=== PATIENT | female | born 1990 | race Caucasian/White ===

== ENCOUNTER 2019-04-10 09:04 | Outpatient (CLI) | payer SELFPAY ==
[2019-04-10 10:11] VITALS: BMI 32.9
== END 2019-04-10 10:22 | disposition home or self-care (01) ==
PROVIDERS: PCP Internal Medicine Adolescent Medicine; Visit Provider Nurse Practitioner Family
DX: Z11.1 Encounter for screening for respiratory tuberculosis (principal)
CPT/HCPCS: 86580

== ENCOUNTER 2020-02-14 15:58 | Emergency (ER) | payer MEDICAID, SELFPAY ==
[2020-02-14 16:07] VITALS: BP 146/90; PULSE 87; RESP 18; TEMP 36.7; O2SAT 100
--- NOTE | 2020-02-14 16:11 | HMH.EDUTC ---
[facility] [place] Clinical Impression: Encounter for laboratory testing for COVID-19 virus Disposition: Home, Self-Care Condition on Discharge: Good Instructions: Preventing the Spread of Coronavirus Discharge Instructions Additional Instructions: You was tested for today for COVID19 your test result should be back later this evening, you may call back later this evening to see if your test results are back and the result You was given a handout with instructions for Self Quarantine and Self isolation for while you wait on test results and what to do if they are positive Return if needed FOllow instructions on handout you was given Referrals: Lester Hoffman MD [Primary Care Provider] - As needed Forms: Work/School Release Time of Disposition: 16:14 Medical Decision Making - Dirk Inquiry Pt receiving controlled substance: No Dirk was queried for this patient: No Vital Signs: 02/14/20 16:07 Temperature 98.0 F Temperature Source Oral Pulse Rate [Radial] 87 Respiratory Rate 18 Blood Pressure [Right Arm] 146/90 H Blood Pressure Mean [Right Arm] 108 Blood Pressure Source [Right Arm] Automatic Cuff Blood Pressure Position [Right Arm] Sitting 02 Sat by Pulse Oximetry 100 Oxygen Delivery Method Room Air Orders (Tests/Meds): ORDERS Category Date Time Status Covid-19 Nasal PCR ([facility]) Routine Lab 02/14/20 16:10 Ordered [facility] [place] H[place] - General Stated complaint: Want COVID test Time Seen by Provider: 02/14/20 16:11 Mode of Arrival: Ambulatory Source of Information: Patient Limitations: No Limitations Description of Symptoms (Recalled from Triage Doc. by RN): covid test HEENT Symptoms (Recalled from RN notes): No Resp Symptoms (Recalled from RN notes): No Skin Symptoms (Recalled from RN notes): No MS Symptoms (Recalled from RN notes): No Functional Status (Recalled from RN notes): wnl - History of Present Illness Provider Complaint: Patient states that she was exposed to someone at work on 02/02/2020 that tested positive for COVID and she has been in quarantine at home but never had any symptoms State that her employer wanted her to get tested before they would allow her to come back to work so she came in today to get tested - Related Data Allergies Allergy/AdvReac Type Severity Reaction Status Date / Time No Known Allergies Allergy Unverified 04/27/17 14:49 - Worker's Comp Is this a Worker's Comp case?: No [facility] History - Hepatitis A Screen Drug use history?: No High risk sexual behaviors?: No History of sexually transmitted infection?: No Currently employed?: No Childcare worker?: No Do you have indoor plumbing?: Yes Do you have electricity?: Yes Attestation statement:: This patient has been screened for Hepatitis A risk factors. I have reviewed the patient's past medical history: Yes - Social History Alcohol Intake: never Occupational Status: employed ROS Obtained: Yes All systems reviewed & no additional complaints, Yes Systems reviewed as appropriate & no additional complaints - Constitutional Constitutional: Reports system reviewed and no additional complaints, except as docu, Denies body ache, Denies fever(s), Denies headache(s) - ENT Ears, Nose, Mouth, and Throat: Reports system reviewed and no additional complaints, except as docu, Denies sinus pain, Denies sinus pressure, Denies sore throat - Cardiovascular Cardiovascular: Reports system reviewed and no additional complaints, except as docu - Respiratory Respiratory: Yes system reviewed and no additional complaints, except as docu, No chest congestion, No cough, No dyspnea - Gastrointestinal Gastrointestingal: Reports: system reviewed and no additional complaints, except as docu Physical Exam - General General appearance: alert, in no apparent distress - ENT ENT exam: Present: normal exam, normal oropharynx, mucous membranes moist, TM's normal bilaterally, normal external ear exam - Neck Neck exam: Presen
[2020-02-14 16:20] VITALS: BP 146/90; PULSE 87; RESP 18; TEMP 36.7; O2SAT 100
== END 2020-02-14 16:21 | disposition home or self-care (01) ==
PROVIDERS: Emergency Provider Nurse Practitioner; PCP Internal Medicine Adolescent Medicine
DX: Z20.828 Contact with and (suspected) exposure to other viral communicable diseases (principal)
CPT/HCPCS: 99201; U0003

== ENCOUNTER 2021-03-25 14:21 | Emergency (ER) | payer SELFPAY ==
[2021-03-25 15:17] VITALS: BP 115/76; PULSE 86; RESP 18; TEMP 37.5; O2SAT 100; BMI 33.5
[2021-03-25 15:23] LABS: UTC Strep Screen (Rapid) Negative (Negative)
--- NOTE | 2021-03-25 15:23 | HMH.EDUTC ---
[facility] [place] Clinical Impression: Viral syndrome Sinusitis Qualifiers: Sinusitis location: unspecified location Chronicity: acute Recurrence: non-recurrent Qualified Code(s): J01.90 - Acute sinusitis, unspecified Disposition: Home, Self-Care Condition on Discharge: Good Instructions: DI for Sinusitis, Preventing the Spread of Coronavirus Discharge Instructions, DI for COVID-19 (Suspected or Confirmed ) Additional Instructions: Drink plenty of fluids. Take tylenol or ibuprofen for pain or fever. Take the medications as directed. Follow up with your regular doctor. GO TO THE ER FOR ANY WORSENING SYMPTOMS Quarantine until you know the results of your covid-19 test. If it is positive, the health department should call you and give you further instructions about your length of Quarantine and other things. Notify your school or workplace of your results and follow their instructions regarding return to work/school. Prescriptions: Brompheniramine/Pseudoephed/Dm [Bromfed Dm Cough Syrup] 5 ml PO Q6HP PRN #240 ml PRN Reason: Cough Transmission Status: Pending to [facility] methylPREDNISolone [Medrol] 4 mg PO DIRECTED 6 Days #21 packet Transmission Status: Pending to [facility] Azithromycin [Z-Jhon 250mg Tab*] 250 mg PO UD DOSE PK #6 tab Transmission Status: Pending to [facility] Referrals: Letser Hoffman MD [Primary Care Provider] - Forms: Work/School Release Time of Disposition: 15:35 Medical Decision Making - Medical Records Medical records reviewed: No: I reviewed the patient's medical records. - Dirk Inquiry Pt receiving controlled substance: No Vital Signs: 03/25/21 15:17 Temperature 99.5 F Temperature Source Oral Pulse Rate [Left] 86 Respiratory Rate 18 Blood Pressure [Right Arm] 115/76 Blood Pressure Mean [Right Arm] 89 02 Sat by Pulse Oximetry 100 - Lab Data Lab results reviewed: Yes: I reviewed the patient's lab results. Lab Results 03/25/21 15:14: Strep Scn Rapid Clinic Negative Orders (Tests/Meds): ORDERS Category Date Time Status Strep Screen Confirmation Routine Micro 03/25/21 15:14 Received [facility] [place] HPI - General Stated complaint: sore throat, cough Time Seen by Provider: 03/25/21 15:23 Mode of Arrival: Ambulatory Source of Information: Patient Limitations: No Limitations Description of Symptoms (Recalled from Triage Doc. by RN): pt c/o nasal drainage, sore throat and cough. x3 days. HEENT Symptoms (Recalled from RN notes): Yes (nasal drainage and sore throat) Resp Symptoms (Recalled from RN notes): Yes (cough) Skin Symptoms (Recalled from RN notes): No MS Symptoms (Recalled from RN notes): No Functional Status (Recalled from RN notes): na - History of Present Illness Provider Complaint: She states that for the past 3 days, she has had worsening sinus congestion and drainage. She has a sore throat and a cough also. She denies any fever, but she has had chilling. She has been vaccinated against covid-19. She works as a beauty culture teacher. - Related Data Previous Rx's Medication Instructions Recorded Azithromycin [Z-Jhon 250mg Tab*] 250 mg PO UD DOSE PK #6 tab 03/25/21 Brompheniramine/Pseudoephed/Dm 5 ml PO Q6HP PRN #240 ml 03/25/21 [Bromfed Dm Cough Syrup] methylPREDNISolone [Medrol] 4 mg PO DIRECTED 6 Days #21 03/25/21 packet Allergies Allergy/AdvReac Type Severity Reaction Status Date / Time No Known Allergies Allergy Unverified 04/27/17 14:49 - Worker's Comp Is this a Worker's Comp case?: No [facility] History - Hepatitis A Screen Drug use history?: No High risk sexual behaviors?: No History of sexually transmitted infection?: No Currently employed?: No Childcare worker?: No Do you have indoor plumbing?: Yes Do you have electricity?: Yes Attestation statement:: This patient has been screened for Hepatitis A risk factors. I have reviewed the patient's past medical history: Yes - Soc
[2021-03-25 15:47] VITALS: BP 115/76; PULSE 86; RESP 18; TEMP 37.5
[2021-03-25 15:53] LABS: Adenovirus,PCR Not Detected (NotDetected); Bordetella Pertussis Not Detected (NotDetected); Chlamydophila Pneumoniae, PCR Not Detected (NotDetected); Coronavirus 19, PCR Not Detected (NotDetected); Coronavirus 229E Not Detected (NotDetected); Coronavirus NL63 Not Detected (NotDetected); Coronavirus OC43 Not Detected (NotDetected); Coronovirus HKU1,PCR Not Detected (NotDetected); Human Metapneumovirus Not Detected (NotDetected); Influenza A, PCR Not Detected (NotDetected); Influenza AH1, 2009 Not Detected (NotDetected); Influenza AH1, PCR Not Detected (NotDetected); Influenza AH3,PCR Not Detected (NotDetected); Influenza B, PCR Not Detected (NotDetected); Mycoplasma Pneumoniae, PCR Not Detected (NotDetected); Parainfluenza 1, PCR Not Detected (NotDetected); Parainfluenza 2, PCR Not Detected (NotDetected); Parainfluenza 3, PCR Not Detected (NotDetected); Parainfluenza 4, PCR Not Detected (NotDetected); Respiratory Syncytial Virus Not Detected (NotDetected); Rhinovirus/Enterovirus Not Detected (NotDetected)
== END 2021-03-25 15:49 | disposition home or self-care (01) ==
PROVIDERS: Emergency Provider Nurse Practitioner Family; PCP Internal Medicine Adolescent Medicine
DX: J01.90 Acute sinusitis, unspecified (principal); B34.9 Viral infection, unspecified; Z20.822 Contact with and (suspected) exposure to COVID-19
CPT/HCPCS: 87581; 87632; 87798; 87880; 99203; C9803; G0463; U0003; U0005

== ENCOUNTER 2021-03-31 11:11 | Outpatient (REF) | payer SELFPAY | END 2021-03-31 12:30 | disposition home or self-care (01) | LOC: UTC.OUT 11:11 | PROVIDERS: Visit Provider Nurse Practitioner | DX: Z02.1 Encounter for pre-employment examination (principal) ==

== ENCOUNTER → 2021-05-12 14:08 | Outpatient (CLI) | payer OTHER, SELFPAY | PROVIDERS: PCP Internal Medicine Adolescent Medicine; Visit Provider Nurse Practitioner | DX: U07.1 COVID-19 (principal) | CPT/HCPCS: C9803; U0003; U0005 ==

== ENCOUNTER → 2021-05-19 12:47 | Outpatient (CLI) | payer OTHER, SELFPAY | PROVIDERS: PCP Radiology Diagnostic Radiology; Visit Provider Nurse Practitioner | DX: U07.1 COVID-19 (principal) | CPT/HCPCS: C9803; U0003; U0005 ==

== ENCOUNTER → 2021-05-22 11:49 | Outpatient (CLI) | payer OTHER, SELFPAY | PROVIDERS: PCP Internal Medicine Adolescent Medicine; Visit Provider Nurse Practitioner | DX: U07.1 COVID-19 (principal) | CPT/HCPCS: C9803; U0003; U0005 ==

== ENCOUNTER → 2021-05-27 11:09 | Outpatient (CLI) | payer OTHER, SELFPAY | PROVIDERS: Visit Provider Nurse Practitioner | DX: Z20.822 Contact with and (suspected) exposure to COVID-19 (principal) | CPT/HCPCS: C9803; U0003; U0005 ==

== ENCOUNTER 2021-12-09 12:51 | Emergency (ER) | payer SELFPAY ==
[2021-12-09 13:00] VITALS: BP 114/68; PULSE 85; RESP 19; TEMP 37; O2SAT 98; BMI 34.1
--- NOTE | 2021-12-09 13:21 | HMH.EDUTC ---
[facility] [place] Disposition Clinical Impression: Encounter for laboratory testing for COVID-19 virus Disposition: Home, Self-Care Condition on Discharge: Good Instructions: DI for COVID-19 (Suspected or Confirmed ), Preventing the Spread of Coronavirus Discharge Instructions Additional Instructions: *Monitor Temp, Over the counter Motrin or Tylenol as directed/as needed Tylenol every 4 hours and Motrin every 6 hours (as long as your family doctor has told you that you can take it) for fever or pain. and straight to ER if unable to lower temp less than 101.0 after medication given *Warm salt water gargles may help to soothe the throat *Throat Lozenges *Warm fluids like tea with honey may help to soothe the throat *Sleep elevated *Humidifier/Vaporizer Follow up IMMEDIATELY for new or worsening symptoms or no Noticeable improvement over the next 48-72 hours. 911 for difficulty breathing or swallowing You were tested for today for COVID19 your test result should be back in the next 24-48 hours, you may check your results on the [facility] My Health Portal Make sure to take your Vitamins Vit. C Vit D and Zinc if you can take them Referrals: Lester Hoffman MD [Primary Care Provider] - As needed Forms: Work/School Release Medical Decision Making - Dirk Inquiry Pt receiving controlled substance: No Dirk was queried for this patient: No Vital Signs: 12/09/21 13:00 Temperature 98.6 F Temperature Source Oral Pulse Rate [Left Brachial] 85 Respiratory Rate 19 Blood Pressure [Left Arm] 114/68 Blood Pressure Mean [Left Arm] 83 Blood Pressure Source [Left Arm] Automatic Cuff Blood Pressure Position [Left Arm] Sitting 02 Sat by Pulse Oximetry 98 Oxygen Delivery Method Room Air Orders (Tests/Meds): ORDERS Category Date Time Status Covid-19 Nasal PCR ([facility]) Routine Lab 12/09/21 13:00 Received [facility] [place] HPI - General Stated complaint: Covid test Time Seen by Provider: 12/09/21 13:21 Mode of Arrival: Ambulatory Source of Information: Patient Limitations: No Limitations Description of Symptoms (Recalled from Triage Doc. by RN): PATIENT C/O COUGH, SORE THROAT AND HEADACHE SINCE YESTERDAY. RECENTLY EXPOSED TO COVID HEENT Symptoms (Recalled from RN notes): Yes Resp Symptoms (Recalled from RN notes): Yes Skin Symptoms (Recalled from RN notes): No MS Symptoms (Recalled from RN notes): No Functional Status (Recalled from RN notes): WNL - History of Present Illness Provider Complaint: Patient states that she was recently exposed to someone that was positive for COVID state that she started feeling bad yesterday having cough, runny nose and headache States that today she was feeling achy so she came in to get tested - Related Data Previous Rx's Medication Instructions Recorded Azithromycin [Z-Jhon 250mg Tab*] 250 mg PO UD DOSE PK #6 tab 03/25/21 Brompheniramine/Pseudoephed/Dm 5 ml PO Q6HP PRN #240 ml 03/25/21 [Bromfed Dm Cough Syrup] Allergies Allergy/AdvReac Type Severity Reaction Status Date / Time No Known Allergies Allergy Unverified 04/27/17 14:49 - Worker's Comp Is this a Worker's Comp case?: No [facility] History - Hepatitis A Screen Attestation statement:: This patient has been screened for Hepatitis A risk factors. I have reviewed the patient's past medical history: Yes Laterality Cases: Bilateral: Tonsillectomy - Social History Alcohol Intake: never Occupational Status: other ROS Obtained: Yes All systems reviewed & no additional complaints, Yes Systems reviewed as appropriate & no additional complaints - Constitutional Constitutional: Reports system reviewed and no additional complaints, except as docu, Reports body ache, Reports chills, Reports fatigue, Reports headache(s) - ENT Ears, Nose, Mouth, and Throat: Reports system reviewed and no additional complaints, except as docu, Reports nasal congestion - Cardiovascular Cardiovascular: Reports system reviewed and no additional complaints
[2021-12-09 13:22] LABS: UTC Strep Screen (Rapid) Negative (Negative)
[2021-12-09 13:27] VITALS: BP 114/68; PULSE 85; RESP 19; TEMP 37; O2SAT 98
== END 2021-12-09 13:33 | disposition home or self-care (01) ==
PROVIDERS: Emergency Provider Nurse Practitioner; PCP Internal Medicine Adolescent Medicine
DX: U07.1 COVID-19 (principal)
CPT/HCPCS: 87880; 99212; C9803; G0463; U0003; U0005

== ENCOUNTER 2023-03-08 07:42 | Emergency (ER) | payer SELFPAY ==
[2023-03-08] VITALS (13 sets, daily range): BP systolic 85–150; BP diastolic 66–115; PULSE 65–85; RESP 16–17; TEMP 36.7–37.2; O2SAT 96–99; BMI 31.7
--- NOTE | 2023-03-08 07:55 | CT_ITS ---
FINAL REPORT TECHNIQUE: After the administration of intravenous contrast, axial images were obtained through the abdomen and pelvis by computed tomography. This study was performed with technique to keep radiation doses as low as reasonably achievable, (ALARA). Individualized dose reduction techniques using automated exposure control or adjustment of the MA and/or KV according to the patient's size were employed. CLINICAL HISTORY: bloody mucoid stools, lower abdominal pain FINDINGS: Abdomen: The lung bases are clear. The liver is normal in size and attenuation. The spleen is unremarkable. The adrenals are normal. The pancreas is unremarkable. The kidneys enhance appropriately. The aorta is normal in caliber. There is no free fluid or adenopathy. Pelvis: The appendix is normal. Uterus is somewhat lobular likely related to uterine fibroids. There is descending and sigmoid colon wall thickening consistent with colitis. Scattered diverticula are noted. The urinary bladder is unremarkable. There is no free fluid or adenopathy. IMPRESSION: Wall thickening of the descending and sigmoid colon consistent with colitis. Fibroid uterus. Reviewed, Interpreted and Dictated by Fransisco Major III, MD Transcribed by Sabi Garcia Authenticated and [facility]
--- NOTE | 2023-03-08 07:57 | HMH.EDGENADL ---
Discharge Plan Disposition Patient Disposition: Home, Self-Care Condition: Good Prescriptions Prescriptions: New prednisone 20 mg tablet 40 mg PO DAILY 5 Days Qty: 10 0RF Referrals Follow up/Referrals: Vaughn Nick DO [Staff Physician] - See instructions Provider,Referral, [Primary Care Provider] - See instructions Activity Restrictions/Add. Instructions Additional Instructions/Restrictions: You were evaluated in the emergency department today. Please waste picker your prescription at the pharmacy and take the course as prescribed. We have given you a dose today, so you will start this tomorrow 03/09/2023. It is important that you follow-up with your primary care provider, as I feel that prompted gastroenterology referral for further evaluation and management with possible endoscopy would be beneficial to you to rule out Crohn's disease. Return to the emergency department for new or worsening symptoms. Clinical Impressions Clinical Impression: Colitis Stand Alone Forms Stand Alone Forms: Work/School Release Instructions Patient Instructions: DI for Acute Abdominal Pain Discharge ED Provider: Tiffany Hutchison General Adult HPI General Chief complaint: Abdominal Pain Stated complaint: blood in stool Time Seen by Provider: 03/08/23 07:50 History of Present Illness HPI narrative: This patient is a 32-year-old female who reports a history of IBS presenting to the emergency department for evaluation with concern for lower abdominal pain and bloody/mucoid stools. She states that she has had IBS for years but has not been seen, had endoscopy, or undergone any treatment for this. She notes that she always chronically has diarrhea, however over the past week, she has had a lot of mucus and bright red blood in her stools. She also has had intermittent rectal pain. She complains of lower abdominal pain at this time. She denies any fevers, vomiting, urinary symptoms, or other concerns. Related Data Previous Rx's Medication Instructions Recorded prednisone 20 mg tablet 40 mg PO DAILY 5 days #10 tabs 03/08/23 Allergies Allergy/AdvReac Type Severity Reaction Status Date / Time No Known Allergies Allergy Verified 03/08/23 08:22 [facility] Disclaimer: The information contained in this section may have been updated after the patient was seen, as this information can be updated by other users. Social History Smoking Status: Former smoker alcohol intake: never current occupational status: other Travel in the last 8 weeks: None ROS Obtained: Yes All systems reviewed & no additional complaints except as documented Physical Exam General General appearance: alert and in no apparent distress Head Head exam: atraumatic and normocephalic Eye Eye exam: Present normal appearance, PERRL and EOMI ENT ENT exam: Present normal exam, normal oropharynx, mucous membranes moist and normal external ear exam Neck Neck exam: Present normal inspection, full ROM and trachea midline; Absent tenderness Chest Chest inspection: Present normal inspection and symmetric chest wall rise; Absent tenderness Respiratory Respiratory exam: Present normal lung sounds bilaterally; Absent respiratory distress, wheezes, stridor or accessory muscle use Cardiovascular Cardiovascular exam: Present regular rate and normal rhythm Abdominal Exam Abdominal exam: Present soft and tenderness (Lower abdomen); Absent distention or guarding Rectal Exam Rectal exam: Present normal inspection and normal rectal tone; Absent black stool, bloody stool, fecal impaction, hemorrhoids, mass or tenderness Extremities Exam Extremities exam: Present normal inspection, full ROM and normal capillary refill; Absent tenderness or edema Back Exam Back exam: Present normal inspection and full ROM; Absent tenderness Neurological Exam Neurological exam: Present alert, oriented X3, CN II-XII intact and normal g
[2023-03-08 08:20] LABS: Basophils % 0.4 % (0.1-2.0); Eosinophils # 0.2 K/mm3 (0.0-0.4); Eosinophils % 1.8 % (0.1-12.0); Hematocrit 39.8 % (37.0-47.0); Hemoglobin 13.4 g/dL (12.2-16.2); Lymphocytes # 1.4 K/mm3 (0.7-4.5); Lymphocytes % 15.8 % (10-50); Mean Corpuscular HGB Conc 33.6 g/dL (31.8-35.4); Mean Corpuscular Hemoglobin 28.4 pg (27.0-31.2); Mean Corpuscular Volume 84.5 fl (81-99); Mean Platelet Volume 8.2 fl (7.4-10.4); Monocytes # 0.3 K/mm3 (0.1-1.0); Platelet Count 242 K/mm3 (142-424); Red Blood Count 4.71 M/mm3 (4.20-5.40); Red Cell Distribution Width 13.4 % (11.5-17.5); White Blood Count 8.8 K/mm3 (4.8-10.8)
[2023-03-08 08:27] LABS: Chloride 106 mmol/L (98-107); Potassium 3.6 mmoL/L (3.5-5.1); Sodium 137 mmol/L (136-145)
[2023-03-08 08:29] LABS: Blood Urea Nitrogen 7 mg/dl (7-17); Creatinine Clearance Estimated 177 mL/min (50-200); Estimated Glomerular Filt Rate 115 ml/min (>60); GFR (African American) 139 ML/MIN (>60)
[2023-03-08 08:30] LABS: Alanine Aminotransferase 19 U/L (12-78); Albumin Level 4.4 g/dl (3.5-5.0); Albumin/Globulin Ratio 1.6 (1.1-1.8); Alkaline Phosphatase 62 U/L (38-126); Anion Gap 8.6 mEq/L (5-15); Aspartate Amino Transferase 26 U/L (14-36); Bilirubin,Total 0.4 mg/dl (0.2-1.3); Calcium 9.2 mg/dl (8.4-10.2); Carbon Dioxide 26 mmol/L (22.0-30.0); Globulin 2.8 g/dL (1.3-3.2); Glucose 108 mg/dl (74-100); Lipase 100 U/L (23-300); Total Protein,Serum 7.2 g/dl (6.3-8.2)
[2023-03-08 08:52] LABS: HCG Qualitative, Serum Negative (Negative)
[2023-03-08 09:20] LABS: Microscopic, Urine URINE MICROSCOPIC (MICROSCOPIC)
--- NOTE | 2023-03-08 09:26 | PC.NURSE ---
Pt returned from RAD. No needs or complaints voiced. Call light within reach.
[2023-03-08 09:45] LABS: Appearance,Urine CLEAR (Clear); Bilirubin,Urine Negative (Negative); Blood, Urine Negative (Negative); Color,Urine YELLOW (Yellow); Glucose,Urine (UA) Negative (Negative); Ketones,Urine Negative (Negative); Leukocyte Esterase,Urine Negative (Negative); Nitrate,Urine Negative (Negative); PH,Urine 6.5 (5.0-8.5); Protein,Urine Negative (Negative); Specific Gravity, Urine <= 1.005 (1.005-1.030); Urobilinogen,Urine 0.2 EU/dl (0.2)
[2023-03-08 09:48] LABS: Occult Blood,Stool Positive (Negative)
[2023-03-08 09:55] LABS: Squamous Epithelial Cell,Urine Occasional #/hpf (0-5)
--- NOTE | 2023-03-08 10:35 | PC.NURSE ---
Rounded on pt. No needs voiced. Call light remains within reach.
--- NOTE | 2023-03-08 10:54 | PC.NURSE ---
preliminary report to be faxed down
== END 2023-03-08 11:33 | disposition home or self-care (01) ==
PROVIDERS: Emergency Provider Emergency Medicine
DX: K58.0 Irritable bowel syndrome with diarrhea; R10.30 Lower abdominal pain, unspecified; Z87.891 Personal history of nicotine dependence
CPT/HCPCS: 74177; 80053; 81001; 82272; 83690; 84703; 85025; 96361; 96374; 99284; G0328; Q9967

== ENCOUNTER → 2023-03-29 16:10 | Outpatient (CLI) | payer SELFPAY | LOC: UTC.OUT 16:11 | PROVIDERS: PCP Internal Medicine Adolescent Medicine; Visit Provider Nurse Practitioner | DX: Z02.1 Encounter for pre-employment examination (principal) ==

== ENCOUNTER 2023-12-30 09:49 | Emergency (ER) | payer SELFPAY ==
[2023-12-30 09:51] VITALS: BP 110/88; PULSE 87; RESP 18; TEMP 37.1; O2SAT 98; BMI 30.9
--- NOTE | 2023-12-30 10:13 | ED_ITS ---
Discharge Plan Disposition Patient Disposition: Home, Self-Care Condition: Good Prescriptions Prescriptions: New amoxicillin 875 mg tablet 875 mg PO Q12H Qty: 20 0RF guaifenesin [Mucinex] 600 mg tablet extended release 12hr 1,200 mg PO BID PRN (Reason: cough) Qty: 20 0RF No Action prednisone 20 mg tablet 40 mg PO DAILY 5 Days Qty: 10 0RF Referrals Follow up/Referrals: Lester Hoffman MD [Primary Care Provider] - See instructions Activity Restrictions/Add. Instructions Additional Instructions/Restrictions: *Monitor Temp, Over the counter Motrin or Tylenol as directed/as needed Tylenol every 4 hours and Motrin every 6 hours (as long as your family doctor has told you that you can take it) for fever or pain. and straight to ER if unable to lower temp less than 101.0 after medication given *Warm salt water gargles may help to soothe the throat *Throat Lozenges? *Warm fluids like tea with honey may help to soothe the throat? *Sleep elevated *Humidifier/Vaporizer Follow up IMMEDIATELY for new or worsening symptoms or no Noticeable improvement over the next 48-72 hours. 911 for difficulty breathing or swallowing You were tested for today for COVID19 your test result should be back in the next 24 hours, you may check your results on the [facility] Portal Clinical Impressions Clinical Impression: Otitis media Qualifiers: Otitis media type: unspecified Laterality: left Qualified Code(s): H66.92 - Otitis media, unspecified, left ear Stand Alone Forms Stand Alone Forms: Work/School Release Instructions Patient Instructions: Middle Ear Infection, DI for COVID-19 (Suspected or Confirmed ) Print Language Print Language: Bengali Discharge ED Provider: Belinda Conde [facility] [place] HPI General Stated complaint: headache, congestion, ear pain Time Seen by Provider: 12/30/23 10:13 History of Present Illness Provider Complaint: Patient states she has been having pain in both ears worse i n her left, scratchy throat, nasal congestion and chest congestion States that she took a home COVID test and it was positive and she needed to here to have a documented positive test but was worried that she may have an ear infection on top of it Related Data Previous Rx's ?Medication ?Instructions ?Recorded prednisone 20 mg tablet 40 mg (2 x 20 mg) PO DAILY 5 days 03/08/23 #10 tabs amoxicillin 875 mg tablet 875 mg PO Q12H #20 tabs 12/30/23 guaifenesin 600 mg tablet, 1,200 mg (2 x 600 mg) PO BID PRN 12/30/23 extended release 12 hr (Mucinex) cough #20 tabs Allergies Allergy/AdvReac Type Severity Reaction Status Date / Time No Known Allergies Allergy Verified 03/08/23 08:22 [facility] Disclaimer: The information contained in this section may have been updated after the patient was seen, as this information can be updated by other users. Social History Smoking Status: Former smoker alcohol intake: never current occupational status: other Travel in the last 8 weeks: None ROS Obtained: Yes All systems reviewed & no additional complaints except as documented and Yes Systems reviewed as appropriate & no additional complaints e xcept as documented Constitutional Constitutional: Reports system reviewed and no additional complaints, except as documented, Reports as per HPI, Reports body ache, Reports chills and Reports headache(s) ENT Ears, Nose, Mouth, and Throat: Reports system reviewed and no additional complaints, except as documented, Reports as per HPI, Reports otalgia, Reports headache(s), Reports nasal congestion and Reports sore throat (scratchy throat) Cardiovascular Cardiovascular: Reports system reviewed and no additional complaints, except as documented and Reports as per HPI Respiratory Respiratory: Reports system reviewed and no additional complaints, except as documented, Reports as per HPI, Reports chest congestion and Reports cough Gastrointestinal Gastrointestingal: Reports system reviewed and no additional complaints, except as documented and as per HPI Neurologic Neurologic: Reports headache(s) Physical Exam General General appearance: alert and in no apparent distress ENT ENT exam: Present mucous membranes moist Expanded ENT Exam TM/Canal exam: Left TM: erythema and Bilateral TM: bulging Nose exam: Absent sinus tenderness Throat exam: Present normal inspection Respiratory Respiratory exam: Present normal lung sounds bilaterally; Absent respiratory distress or wheezes Cardiovascular Cardiovascular exam: Present regular rate, normal rhythm and normal heart sounds Abdominal Exam Abdominal exam: Present soft and normal bowel sounds; Absent distention or tenderness Neurological Exam Neurological exam: Present alert, oriented X3 and normal gait Medical Decision Making Dirk Inquiry Pt receiving controlled substance: No Dirk was queried for this patient: No
[2023-12-30 10:30] VITALS: BP 110/88; PULSE 87; RESP 18; TEMP 37.1; O2SAT 98
[2023-12-30 10:33] LABS: Influenza A, PCR Not Detected (NotDetected); Influenza B, PCR Not Detected (NotDetected)
[2023-12-30 11:55] LABS: Coronavirus 19, PCR Detected (NotDetected)
== END 2023-12-30 10:34 | disposition home or self-care (01) ==
PROVIDERS: Emergency Provider Nurse Practitioner; PCP Internal Medicine Adolescent Medicine
DX: U07.1 COVID-19 (principal); R51.9 Headache, unspecified; H66.92 Otitis media, unspecified, left ear; R07.0 Pain in throat; R09.81 Nasal congestion
CPT/HCPCS: 87636; 99212; 99214; G0463

== ENCOUNTER 2024-06-27 08:54 | Emergency (ER) | payer SELFPAY ==
[2024-06-27 08:55] VITALS: BP 151/106; PULSE 68; RESP 16; TEMP 36.6; O2SAT 99; BMI 30.9
--- NOTE | 2024-06-27 09:06 | ED_ITS ---
Discharge Plan Disposition Patient Disposition: Home, Self-Care Condition: Good Prescriptions Prescriptions: No Action No Known Home Medications Referrals Follow up/Referrals: Lester Hoffman MD [Primary Care Provider] - See instructions Activity Restrictions/Add. Instructions Additional Instructions/Restrictions: You were evaluated in the emergency department today. Please use the erythromycin ointment provided to you 4 times daily for the next 4 days or until symptoms have resolved. Please follow-up very closely with primary care and/or eye doctor. Take Tylenol and ibuprofen every 4-6 hours as needed for pain. Return to the emergency department right away for new or worsening symptoms, such as worsening redness and swelling, worsening pain, vision changes, or other concern. Dr. Santiago [facility] [place] [id number] Clinical Impressions Clinical Impression: Abrasion, corneal, Conjunctivitis Stand Alone Forms Stand Alone Forms: Work/School Release Instructions Patient Instructions: DI for Corneal Abrasion, DI for Conjunctivitis Print Language Print Language: Icelandic Discharge ED Provider: Tiffany Hutchison General Adult HPI General Chief complaint: Eye Problems Stated complaint: right eye red wattering swollen Time Seen by Provider: 06/27/24 08:59 Mode of Arrival: Ambulatory Source of Information: Patient Limitations: No Limitations Description of Symptoms (Recalled from ER Triage Doc. by RN): Patient reports right eye swelling and watering since Wednesday. Denies any injury to the eye that she is aware of. History of Present Illness HPI narrative: This patient is a 33-year-old female who denies significant past medical history presenting to the emergency department for evaluation with concern for right eye pain, redness, watering. Patient reports that she felt she had a foreign body in her eye on Wednesday upon waking up, but she did not think much of it. She denies any known foreign body, denies any known trauma. She is not a contact lens wearer. She bought an eyewash from the pharmacy and irrigated her eye, but she felt that that actually might of made symptoms worse. She notes that today upon waking up, she has swelling of her eyelids on that side and has a lot of burning of her eye. She states that it feels like something is still in there. No other concerns, such as notable visual disturbance or other issue. Related Data Home Medications ?Medication ?Instructions ?Recorded ?Confirmed No Known Home Medications 06/27/24 06/27/24 Allergies Allergy/AdvReac Type Severity Reaction Status Date / Time No Known Allergies Allergy Verified 03/08/23 08:22 [facility] Disclaimer: The information contained in this section may have been updated after the patient was seen, as this information can be updated by other users. Social History Smoking Status: Never smoker alcohol intake: never current occupational status: other Travel in the last 8 weeks: None Have you lived/traveled outside [place] in past 30 days?: No Contact w/someone who lives/traveled outside [place] past 30 days?: No Exposure to someone with infectious disease in past 14 days?: No Do you have a fever (greater than 100.4 F or 38 C)?: No Have you tested positive for COVID-19: No Exposed to someone with COVID-19 in past 14 days?: No Do you have a sore throat?: No Do you have a cough?: No Do you have any weakness?: No Do you have any diarrhea?: No Are you experiencing any unusual bleeding?: No Do you have any muscle aches/pain?: No Do you have any abdominal pain?: No Are you experiencing loss of taste or smell?: No Other Medical History Have you received the Flu Vaccine for this season: No Have you received the Pneumonia Vaccine: No ROS Obtained: Yes All systems reviewed & no additional complaints except as documented Physical Exam General General appearance: alert and in no apparent distress Head Head exam: atraumatic and normocephalic Eye Eye exam: Present PERRL, EOMI and other (Right conjunctival injection with right upper and lower eyelid swelling and erythema. No periorbital swelling or erythema. No pain with extraocular movements.) ENT ENT exam: Present normal exam, normal oropharynx, mucous membranes moist and normal external ear exam Neck Neck exam: Present normal inspection, full ROM and trachea midline; Absent tenderness Chest Chest inspection: Present normal inspection and symmetric chest wall rise; Absent tenderness Respiratory Respiratory exam: Present normal lung sounds bilaterally; Absent respiratory distress, wheezes, stridor or accessory muscle use Cardiovascular Cardiovascular exam: Present regular rate and normal rhythm Abdominal Exam Abdominal exam: Present soft; Absent distention, tenderness or guarding Extremities Exam Extremities exam: Present normal inspection, full ROM and normal capillary refill; Absent tenderness or edema Back Exam Back exam: Present normal inspection and full ROM; Absent tenderness Neurological Exam Neurological exam: Present alert, oriented X3, CN II-XII intact and normal gait; Absent motor sensory deficit Psychiatric Psychiatric exam: Present normal affect and normal mood Skin Skin exam: Present warm and dry Medical Decision Making Medical Records Medical records reviewed: Yes I reviewed the patient's medical records. Screening: Per USPSTF and CDC recommendations, given the prevalence of disease in our region, it is our hospital?s policy to screen for HIV and viral Hepatitis for all patients aged 18 and over and those with ongoing risk factors. Dirk Inquiry Pt receiving controlled substance: No Vital Signs: 06/27/24 08:55 06/27/24 10:23 06/27/24 10:29 Temperature 97.9 F 98.0 F Temperature Source Oral Pulse Rate 80 71 Pulse Rate [Radial] 68 Respiratory Rate 16 16 Blood Pressure 128/95 H 128/95 H Blood Pressure [Right Arm] 151/106 H Blood Pressure Mean [Right Arm] 121 Blood Pressure Source Automatic Cuff Blood Pressure Source [Right Arm] Automatic Cuff Blood Pressure Position Sitting Blood Pressure Position [Right Arm] Sitting 02 Sat by Pulse Oximetry 99 98 Oxygen Delivery Method Room Air Room Air Room Air Lab Data Lab results reviewed: Yes I reviewed the patient's lab results. Orders (Tests/Meds): ED MEDICATIONS Discontinued Medications Generic Name Dose Route Start Last Admin Trade Name Miltonq PRN Reason Stop Dose Admin Erythromycin 1 gm 06/27/24 10:19 06/27/24 10:29 Erythromycin Base 1 Gm Oint...G. OP 06/27/24 10:20 1 gm ONCE ONE Administration Fluorescein Sodium 1 mg 06/27/24 10:19 06/27/24 10:28 Fluorescein Sodium 1mg Strip OP 06/27/24 10:20 1 mg ONCE ONE Administration Tetracaine HCl 0 ml 06/27/24 10:19 06/27/24 10:28 Tetracaine 0.5% Opth Prudence 15ml OP 06/27/24 10:20 15 ml ONCE ONE Administration Medical Decision Narrative: In summary, this patient is a 33-year-old female presenting to the Emergency Department for evaluation of right eye redness, foreign body sensation, irritation, and watering. Differential diagnoses considered include but are not limited to corneal abrasion, corneal ulceration, foreign body, conjunctivitis, periorbital cellulitis, orbital cellulitis. Ruling out the most morbid conditions drove assessment. On exam, the patient is well-appearing. She has upper and lower eyelid swelling of the right eye with mild redness. She also has conjunctival injection with watering. No purulent drainage. She has no significant periorbital swelling or edema. No significant pain with extraocular movements, pupils are equal and reactive without significant vision changes. I fluorescein stained the right eye with use of tetracaine for anesthetic for exam. Patient has some mild fluorescein uptake superior to the right pupil consistent with corneal abrasion. Negative Albert sign. She also has scattered uptake with her conjunctival irritation and injection. I everted the lids and did not note any appreciable foreign body. No deep ulceration or other concern. At this time, based on reassuring history and exam, I doubt acute pathology such as orbital cellulitis or periorbital cellulitis. I feel the patient likely has acute irritation and pain secondary to this corneal abrasion. I feel that she is appropriate for discharge home with erythromycin ointment and instructions for use. She is also given very strict return precautions and instructions for close follow-up with primary care and an eye doctor. Strict return precautions given. Critical Care Critical Care Time Critical Care Time: No
--- NOTE | 2024-06-27 10:15 | PC.NURSE ---
DR DORSEY AT BEDSIDE
[2024-06-27 10:23] VITALS: BP 128/95; PULSE 80; O2SAT 98
--- NOTE | 2024-06-27 10:27 | PC.NURSE ---
ROUNDED ON THE PT. THE PT VOICES THAT SHE DOES NOT NEED ANYTHING AT THIS TIME. CALL LIGHT IS WITHIN REACH OF THE PT.
[2024-06-27] MEDS: TETRACAINE 0.5% OPTH SOL 15ML OP (10:28)
[2024-06-27] MEDS: FLUORESCEIN SODIUM 1MG STRIP 1 MG OP (10:28)
[2024-06-27 10:29] VITALS: BP 128/95; PULSE 71; RESP 16; TEMP 36.7; O2SAT 98
[2024-06-27] MEDS: ERYTHROMYCIN BASE 1 GM OINT...G. OP (10:29)
== END 2024-06-27 10:30 | disposition home or self-care (01) ==
PROVIDERS: Emergency Provider Emergency Medicine; PCP Internal Medicine Adolescent Medicine
DX: H10.31 Unspecified acute conjunctivitis, right eye (principal); S05.01XA Injury of conjunctiva and corneal abrasion without foreign body, right eye, initial encounter; H57.11 Ocular pain, right eye
CPT/HCPCS: 99283